=== PATIENT | male | born 1955 | race Caucasian/White ===

== ENCOUNTER 2023-12-24 06:48 | Outpatient (CLI) | payer MEDICARE | END 2023-12-24 06:49 | disposition home or self-care (01) | LOC: CT 06:48 | PROVIDERS: ATTEND Family Medicine | DX: S09.90XA Unspecified injury of head, initial encounter (principal) | CPT/HCPCS: 70450 ==

== ENCOUNTER 2024-03-24 09:27 | Outpatient (CLI) | payer MEDICARE | END 2024-03-24 09:28 | disposition home or self-care (01) | LOC: BICMRI 09:27 | PROVIDERS: ATTEND Surgery | DX: M54.50 Low back pain, unspecified (principal); M79.651 Pain in right thigh; M79.652 Pain in left thigh; M47.816 Spondylosis without myelopathy or radiculopathy, lumbar region; M48.061 Spinal stenosis, lumbar region without neurogenic claudication; Z98.890 Other specified postprocedural states | CPT/HCPCS: 72120; 72148 ==

== ENCOUNTER 2024-07-11 11:32 | Outpatient (CLI) | payer MEDICARE | END 2024-07-11 11:33 | disposition home or self-care (01) | LOC: SCSRAD 11:32 | PROVIDERS: ATTEND Family Medicine | DX: M25.561 Pain in right knee (principal) ==

== ENCOUNTER 2025-06-05 12:01 | Outpatient (CLI) | payer MEDICARE | END 2025-06-05 12:02 | disposition home or self-care (01) | LOC: SCSRAD 12:01 | PROVIDERS: ATTEND Family Medicine | DX: M25.561 Pain in right knee (principal); M25.471 Effusion, right ankle ==

== ENCOUNTER 2025-06-05 13:58 | Outpatient (CLI) | payer MEDICARE | END 2025-06-05 13:59 | disposition home or self-care (01) | LOC: ULT 13:58 | PROVIDERS: ATTEND Family Medicine | DX: M25.561 Pain in right knee (principal); R60.0 Localized edema ==